=== PATIENT | female | born 1985 | race Caucasian/White ===

== ENCOUNTER 2018-08-19 10:58 | Emergency (ER) | payer OTHER ==
[~2018-08-19] VITALS: Ht 165.1 cm; Wt 136.1 kg
[~2018-08-19 10:58] MED LIST: HYDROCODON-ACE1 EAC7 PO; NOHOMEMEDICATIONS
[2018-08-19] MEDS ORDERED: SYNTHROID50 MCG PO (11:08)
[2018-08-19] MEDS ORDERED: METFORMIN HCL500 MG PO (11:09)
[2018-08-19] MEDS ORDERED: WELLBUTRIN 75 M75 M1 PO (11:09)
[2018-08-19] MEDS ORDERED: VITAMIN D1000 UNI1 PO (11:09)
[2018-08-19] MEDS ORDERED: SPIRONOLACTONE25 M1 PO ×2 (11:09)
[2018-08-19] MEDS ORDERED: CLARITIN10 MG PO (11:09)
[2018-08-19] MEDS ORDERED: ZPAK PO (13:46)
[2018-08-19] MEDS ORDERED: MEDROLDOSEPACK PO (13:46)
[2018-08-19] MEDS ORDERED: TESSALON PERLE100 MG PO (13:46)
[2018-08-19] MEDS ORDERED: VENTOLIN HFA 1818 GM INH (13:46)
[2018-08-19 14:00] VITALS: BP 128/62
== END 2018-08-19 14:08 | disposition home or self-care (01) ==
LOC: M.ERS 10:58
DX: J20.9 Acute bronchitis, unspecified (principal); J45.909 Unspecified asthma, uncomplicated; Z98.890 Other specified postprocedural states